=== PATIENT | female | born 1985 | race Caucasian/White ===

== ENCOUNTER 2023-08-02 09:08 | Outpatient (CLI) | payer BC, SELFPAY ==
[2023-08-02 13:17] LABS: Chlamydia DNA Amplified* NOT DETECTED (No Detected); GC DNA Amplified* NOT DETECTED (No Detected)
== END 2023-08-02 09:09 | disposition home or self-care (01) ==
PROVIDERS: Visit Provider Obstetrics & Gynecology
DX: Z11.3 Encounter for screening for infections with a predominantly sexual mode of transmission (principal); N39.0 Urinary tract infection, site not specified; Z13.29 Encounter for screening for other suspected endocrine disorder; Z13.220 Encounter for screening for lipoid disorders
CPT/HCPCS: 80061; 84443; 87086; 87186; 87491; 87591

== ENCOUNTER 2023-11-27 10:28 | Outpatient (CLI) | payer BC, SELFPAY | END 2023-11-27 10:29 | disposition home or self-care (01) | LOC: NFLDREF 11-29 07:03 | PROVIDERS: Visit Provider Internal Medicine | DX: R30.0 Dysuria (principal); N39.0 Urinary tract infection, site not specified | CPT/HCPCS: 87086; 87186 ==